=== PATIENT | female | born 1970 | race Caucasian/White ===

== ENCOUNTER 2020-05-30 09:18 | Emergency (ER) | payer MEDICARE, OTHER ==
[2020-05-30 09:31] VITALS: RESP 18; TEMP 97.7
--- NOTE | 2020-05-30 09:41 | ED ---
Wound/Laceration HPI - General Chief Complaint: Wound/Laceration Stated Complaint: Chin laceration Time Seen by Provider: 05/30/20 09:20 Source: patient Mode of arrival: ambulatory Limitations: no limitations - History of Present Illness Initial Comments: 49-year-old female presenting today for chief complaint of fall. Patient states around 11:30 PM last night she tripped over an uneven floor board striking her chin. She states her boyfriend Ster i-Strips and a bandage over it. Patient states she is unsure if it needed laceration repair as she has not taken off the bandage the present to the ER for further evaluation. She denies headache nausea vomiting weakness or sensation deficits, patient denies any neck pain she denies loss of consciousness she denies bleeding diathesis or anticoagulation use. Patient states she was a concern of her head or not want to make sure that she didn't need any sutures. Remaining review of systems negative upon arrival patient appears well and nontoxic no acute distress - Related Data Allergies Allergy/AdvReac Type Severity Reaction Status Date / Time No Known Allergies Allergy Verified 05/30/20 09:43 Review of Systems ROS Statement: Those systems with pertinent positive or pertinent negative responses have been documented in the HPI. ROS Other: All systems not noted in ROS Statement are negative. Past Medical History Past Medical History: Cancer, Neurologic Disorder, Seizure Disorder History of Any Multi-Drug Resistant Organisms: None Reported Past Surgical History: Appendectomy, Bowel Resection Additional Past Surgical History / Comment(s): ostomy Past Psychological History: No Psychological Hx Reported Smoking Status: Former smoker Past Alcohol Use History: None Reported Past Drug Use History: Marijuana General Exam - General Exam Comments Initial Comments: General: The patient is awake and alert, in no distress Eye: +3 mm pupils are equal, round and reactive to light, extra-ocular movements are intact. No nystagmus. There is normal conjunctiva bilaterally. No signs of icterus. Ears, nose, mouth and throat: There are moist mucous membranes and no oral lesions. Neck: The neck is supple, there is no tenderness or JVD. No midline tenderness to palpation of the cervical spine. No paraspinal tenderness patient is able to freely move the neck without any difficulty or complaints of pain. No raccoon or Lino sign. Cardiovascular: There is a regular rate and rhythm. No murmur, rub or gallop is appreciated. Respiratory: Lungs are clear to auscultation, respirations are non-labored, breath sounds are equal. No wheezes, stridor, rales, or rhonchi. Musculoskeletal: Normal ROM, no tenderness. Strength 5/5. Sensation intact. Radial pulses equal bilaterally 2+. Neurological: A&O x 3. CN II-XII intact, There are no obvious motor or sensory deficits. Coordination appears grossly intact. Speech is normal. Skin: Skin is warm and dry and no rashes. Very superficial 1 cm laceration of the chin unable to distract edges there is no gaping/or deep laceration noted on exploration/pulling. Psychiatric: Cooperative, appropriate mood & affect, normal judgment. Limitations: no limitations Course Vital Signs 05/30/20 05/30/20 09:21 09:51 Temperature 97.7 F Pulse Rate 81 88 Respiratory 18 Rate Blood Pressure 180/104 157/96 O2 Sat by Pulse 100 Oximetry Medical Decision Making - Medical Decision Making 49-year-old presenting for chief complaint of chin laceration. Tetanus up-to-date. Superficial laceration not requiring repair. cleansed. new steri strips placed as well as bandage. Patient denies any neurological complaints are no focal neurological deficits. Patient will denies neck pain, there is no pain on exam. Patient case discussed with Ashley Jordan pt discharged appearing well. Disposition Clinical Impression: Chin laceration, Fall Disposition: HOME SELF-CARE Condition: Good Instructions (If sedation given, give patient instructions): Steristrips (ED), Facial Laceration (ED) Additional Instructions: Please use medication as discussed. Please follow-up with family doctor in the next 2 days.. Please return to emergency room if the symptoms increase or worsen or for any other concerns. Is patient prescribed a controlled substance at d/c from ED?: No Referrals: Nonstaff,Physician [Primary Care Provider] - 1-2 days Time of Disposition: 09:41
[2020-05-30 09:56] VITALS: BP 157/96; PULSE 88
== END 2020-05-30 09:51 | disposition home or self-care (01) ==
LOC: EC 09:18
DX: S01.81XA Laceration without foreign body of other part of head, initial encounter (principal); Z87.891 Personal history of nicotine dependence; W18.09XA Striking against other object with subsequent fall, initial encounter
CPT/HCPCS: 99282